=== PATIENT | female | born 1990 ===

== ENCOUNTER → 2023-01-17 08:15 | Outpatient (BNV) | payer BC, SELFPAY | PROVIDERS: Visit Provider Psychiatry & Neurology Psychiatry | DX: F10.21 Alcohol dependence, in remission (principal); F39 Unspecified mood [affective] disorder; F63.89 Other impulse disorders | CPT/HCPCS: 90792; 99213; 99499 ==

== ENCOUNTER 2023-01-30 09:30 | Outpatient (RCR) | payer BC, SELFPAY ==
[2023-01-17 11:58] VITALS: BP 109/77; PULSE 86; TEMP 37.4
[2023-01-17 12:02] VITALS: BMI 19.5
--- NOTE | 2023-01-17 13:19 | PC.ADMIT ---
Rachele is a 32 year old female who was referred to [facility] by [facility] office. Rachele has a dx of ETOH use disorder severe, PTSD, Opiate use disorder, and MDD. She reports she was charged with an OUI in September 2021, 3 A&B on police officers, resisting arrest, disorderly conduct, and reckless driving. She is currently on Probation and has a portable breathalyzer which she has to use three times a day. She stated she was put on probation and has violated probation twice with the last time she was detainee in a recovery program they released her to [facility] as a step down in care. Patient reports she has been attending for more support and her [facility] provider is getting her a financial coach. Patient reports she has attended in the past 2 [facility] programs and was in a residential recovery program. She reports she has a history of being Narcaned one time in July 2022. She stated the last time she used heroin/fentanyl was in July and last time she used ETOH was in November 23, 2022. Patient is alert and oriented x4. Calm and cooperative. She presented with depressed mood and anxious affect. She denied SI. She reports she was prescribed Vistaril for anxiety however stated it did not work and does not want to be on medications at this time. Denied being prescribed any other medication. She stated when she was in treatment previously she never really tried to stay sober as she did not want to at the time. She is trying to do things differently this time as she is motivated to stay sober. She did mention that she is using marijuana smoking daily using 1-2 times or less a day. Stated she smoked marijuana this morning. Moving forward she agreed not to use marijuana while in the program. Patient given a copy of her safety/relapse plan and I reviewed this plan with her.
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
--- NOTE | 2023-01-18 09:52 | PC.NURSE ---
PHP clinician Shyanne stated patient feeling sick and vomited on the way to the program thus went home. I called Rachele and she stated she is not feeling well and is on her way home. Denied any safety concerns. Will be at the program on if feeling better.
--- NOTE | 2023-01-19 18:17 | HO.PHP ---
Clients case was reviewed and opened today in treatment team.
[2023-01-23 14:17] LABS: Amphetamine Screen Urine Not Detected (Not Detect); Barbiturates, Urine Not Detected (Not Detect); Benzodiazepines Screen Urine Not Detected (Not Detect); Cannabinoid Screen Urine Not Detected (Not Detect); Cocaine Screen Urine Not Detected (Not Detect); Fentanyl, urine Not Detected (Not Detect); Opiate Screen Urine Not Detected (Not Detect); Phencyclidine Screen Urine Not Detected (Not Detect)
--- NOTE | 2023-01-23 16:26 | HO.PHP ---
PHP staff provided a note to Rachele stating she is currently enrolled in the program. PHP staff made a copy of the letter and placed in her file.
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
--- NOTE | 2023-01-25 01:03 | PM.EVENT ---
Event Note Date of Service: 01/24/23 Event Note: Patient was scheduled to meet with this provider today, however patient left unexpectedly after group this morning. Please see PHP note for more details. Time Spent With Patient Time: Total time managing care of this patient today ____ minutes.
--- NOTE | 2023-01-30 13:17 | HO.PHPPROGNO ---
Subjective Subjective Date of Service: 01/30/23 Reason For Visit: MDD,PTSD,AUD Interim History: Patient seen today for follow-up as per discharge planning. No acute concerns or issues. She feels she has gotten some helpful skills from attending the program, but indicates that she has many things to attend to in her life right now, including work and legal issues and needs to turn her attention to these matters. She reflects on her struggles and sees that her mental health issues are likely playing a bigger role in her addiction than she had initially thought. She says this has become clearer to her in the past couple of week as problems continue to plague her even though she has maintained sobriety, and is realizing she can no longer simply blame alcohol use for her troubles. After revisiting our prior discussion about her mental health, patient expresses interest in further discussions around possibly starting treatment to address underlying mood, irritability and impulse control issues which she suspects are driving force in her struggles with addiction. She reports her mood today as good. Some anxiety related to current stressors, but feels capable of managing. She denies any thoughts of harming herself or others. She denies any cravings or urges to use. No recent alcohol use. She epxresses wish to maintain sobriety for the near future, and is committed to recovery in order to see her children. Review of Systems Acute medical concerns: No Mental Status Exam Mental Status Exam Narrative: Patient Appearance: Well Grooomed Patient Orientation: Person, Place, Time and Situation Level of Consciousness: Awake and Alert Patient Behavior: Appropriate Mood Description: Anxious (euthymic) Affect Description: Appropriate Patient Cognition Impaired: No Ability to Follow Directions: Excellent Speech Pattern: Clear Memory Description: Intact Hallucinations: None Delusions: Not Present Thought Process: Intact Thought Content: positive for Goal Oriented Judgement: Good (tenuous) Judgement and Insight: fair but adequate Diagnostics Vital Signs (24Hr): BMI result Body Mass Index 19.5 Assessment & Plan Assessment & Plan (1) Alcohol use disorder, severe, in early remission: Status: Acute Code(s): F10.21 - Alcohol dependence, in remission (2) Mood disorder: Status: Acute Code(s): F39 - Unspecified mood [affective] disorder (3) Other disorder of impulse control: Status: Acute Code(s): F63.89 - Other impulse disorders Plan No medications were started, as per patient preference Patient was given referral for MH services through [facility] Pt will follow up with commnity providers Discharge information reviewed. Packet signed and given to patient. Discharge from [facility] today Patient educated on: diagnosis, substance abuse and therapeutic strategies Informed Consent: understands Reason for contiued partial hosp. stay Substantial Risk for: stable for discharge Certification I certify that partial hospital treatment is medically necessary due to the symptoms and problems resulting from the patient's mental illness and the failure to treat the patient at the partial hospital level of care would likely result in the patient requiring inpatient psychiatric care which could not be prevented at a less intensive level of care. Total time managing care of this patient today __30__ minutes. Discharge Plan Discharge Attending provider: Dedra Saunders Medications: No Action No Known Home Meds Stand Alone Forms: Patient Portal Discharge page Patient Education: Mood Disorders (DC), Alcohol Use Disorder (DC) Telehealth Telehealth Location of provider rendering services: other (private office) Location of patient: other ([facility]) Telehealth method: video Patient verbally consented to treatment: Yes Minutes spent on Phone/Video with Pt.: 30
--- NOTE | 2023-01-30 15:54 | HO.PHP ---
[facility] staff member contacted Rachele's OP therapist, Shreya De Anda to inform her that Rachele discharged from program today satisfactory, how many days completed, and when she started. [facility] staff member voiced that she is aware that Rachele needs to reach out to schedule the next appointment with her. [facility] staff encouraged her to return her phone call if she has any additional questions. PHP staff member is awaiting a call back.
--- NOTE | 2023-01-31 07:21 | HO.PHP ---
Late entry for 01/30/23. Referral for med management for CHD was faxed.
== END 2023-01-30 23:59 | disposition home or self-care (01) ==
LOC: HO.PHPA 09:30
PROVIDERS: Visit Provider Psychiatry & Neurology Psychiatry
DX: F39 Unspecified mood [affective] disorder (principal); F63.89 Other impulse disorders; F41.9 Anxiety disorder, unspecified; F43.10 Post-traumatic stress disorder, unspecified; F11.10 Opioid abuse, uncomplicated; F10.21 Alcohol dependence, in remission
CPT/HCPCS: 80307; 90791; 90853

== ENCOUNTER 2023-11-10 14:13 | Emergency (ER) | payer OTHER, SELFPAY ==
--- NOTE | ~2023-11-10 | XR_ITS ---
EXAMINATION: XR KNEE, LEFT CLINICAL INFORMATION: Pain status post running. COMPARISON: None available. TECHNIQUE: Four views of the left knee. FINDINGS: There is no fracture or dislocation. Joint spaces are maintained. There may be a small suprapatellar effusion. Regional soft tissue is normal in appearance. XR/XR knee LT 4V IMPRESSION: No fracture or dislocation. Small suprapatellar effusion.
[2023-11-10 14:43] VITALS: BP 102/52; PULSE 71; RESP 18; TEMP 36.2; O2SAT 100; BMI 18.7
--- NOTE | 2023-11-10 14:43 | ED_ITS ---
HPI - Extremity Injury (Lower) General Chief Complaint: Extremity Problem Stated Complaint: l knee injury Time Seen by Provider: 11/10/23 14:43 Source: patient, RN notes reviewed and old records reviewed Mode of arrival: ambulatory History of Present Illness ED Provider: Claudia Victor PA-C HPI Narrative: 33-year-old female with past medical history mood disorder, anxiety, presenting to the ED complaining of atraumatic left knee pain since yesterday. Reports has been increasing her running mileage/intensity. Denies known injury/trauma or fall. Reports pain worse with movement/ambulation and weight-bearing. Denies calf pain Related Data Previous Rx's ?Medication ?Instructions ?Recorded acetaminophen 500 mg tablet 500 mg PO Q6H PRN fever or pain 11/10/23 (Tylenol Extra Strength) #14 tabs naproxen 500 mg tablet 500 mg PO BID PRN pain 10 days #20 11/10/23 tabs Allergies Allergy/AdvReac Type Severity Reaction Status Date / Time No Known Allergies Allergy Verified 11/10/23 14:46 [No Known Allergies*] Review of Systems Review of Systems: Constitutional: No Fever, No Chills Cardiovascular: No Chest Pain, No SOB Respiratory: No Cough, No Sputum, No Wheezing Musculoskeletal: + joint pain, No Myalgias, + Joint Swelling Skin: No Skin Lesions, No rash Neuro: No Weakness, No Numbness, No Paresthesias Yes all other systems are reviewed and are negative Constitutional: Constitutional: Reports as per [facility] Past Medical History Attestation statement: The following information was validated with the patient. Source: old records reviewed Surgical History H/O spinal fusion Social History Social History Household Members: None Household Members Other:: Rachele currently lives alone in a duplex. Patient Tobacco Use Status: Current everyday Tobacco user Tobacco use type: Cigarette Advance Directives: No Advance Directives Information Provided: No Do you have a plan to hurt others: No Plan Physical Exam Vital Signs: Vital Signs: Last Vital Signs Temp 97.1 F 11/10/23 17:05 Pulse 71 11/10/23 17:05 Resp 18 11/10/23 17:05 BP 102/52 L 11/10/23 17:05 Pulse Ox 100 11/10/23 17:05 O2 Del Method Room Air 11/10/23 17:05 BMI result Body Mass Index 18.7 Const: General: cooperative, healthy appearing and no acute distress O rientation/consciousness: patient oriented x3 Limitations: no limitations HEENT: Head: Yes normal to inspection and Yes atraumatic Ears: hearing grossly normal bilaterally General nose exam: Normal external nose present Face and sinus: Yes normal facial exam Eyes: General: appearance normal, both eyes and all related structures EOM: EOMs intact bilaterally Neck: Neck: Yes normal visual inspection and Yes no meningeal signs Resp: Effort & Inspection: normal respiratory effort and no respiratory distress Cardio: Rate: regular rate Skin: Rashes: no rashes Wounds: no wounds Neuro: General: patient oriented x3, tone normal and no meningeal signs Cranial nerves: Yes CN's II-XII intact bilaterally Gait exam (Neuro): Normal gait present Extrem: Other: left knee with mild swelling > medial aspect w/ttp. No erythema/ecchymosis or crepitus. FROM intact. NV intact distally. no calf ttp Course Course Course Narrative: XR knee LT 4V IMPRESSION: No fracture or dislocation. Small suprapatellar effusion. >patient already has knee brace Results discussed with patient including worrisome signs and symptoms and strict return precautions, and when to return to the emergency department. They verbalized understanding and feel safe for discharge at this time. Medical Decision Making Medical Decision Making [facility] Narrative: 33-year-old female with past medical history mood disorder, anxiety, presenting to the ED complaining of atraumatic left knee pain since yesterday. On exam VSS, NAD, nontoxic appearing, PE as above. Ambulating w/steady gait. Concern for meniscal/tendon or ligamental injury. Low suspicion for fracture, DVT. No evidence of septic joint plan: X-ray, pain control Please refer to course for remaining clinical decision making, interpretation of labs/imaging results, and discussions with consultants and/or family members. Differential Diagnosis Differential Diagnoses: The differential diagnosis associated with the presentation includes As above Independent Interpretation I performed an independent interpretation of an: Plain X-Ray Radiology Impression Discussion of test interpretation with radiology: I have reviewed the radiologist's reading. External Record Review External record reviewed: Inpatient record, Office record, Outpatient record, Prior outpatient labs, Prior outpatient radiology, Primary care record and Outside ED record Tests considered The following testing was considered but not selected: As above Prescription Management I considered prescription management with: Pain Medication Discharge Plan Discharge Clinical Impression: Suprapatellar effusion of knee Patient Disposition: Home, Self-Care Instructions: Swollen Knee Joint (ED) Additional Instructions: X-ray shows suprapatellar swelling Please wearing a knee brace, ice and elevate Avoid excessive activity/bending or anything that irritates her knee Follow-up with your doctor as well as Orthopedics, you may need an MRI in the future Naproxen as an anti-inflammatory/pain medication, take with food in addition take Tylenol Prescriptions: New acetaminophen [Tylenol Extra Strength] 500 mg tablet 500 mg PO Q6H PRN (Reason: fever or pain) Qty: 14 0RF naproxen 500 mg tablet 500 mg PO BID PRN (Reason: pain) 10 Days Qty: 20 0RF Ref[place]: [facility] [place] [facility]Provider Group] [facility] [place] [facility] [Provider Group] [facility] [place] [facility] [Provider Group] Interventions: ED Discharge Assessment Last Done: 11/10/23 17:05 Discharge Date/Time: 11/10/23 17:07 Print Language: Trin[place]
[2023-11-10 17:05] VITALS: BP 102/52; PULSE 71; RESP 18; TEMP 36.2; O2SAT 100
== END 2023-11-10 17:07 | disposition home or self-care (01) ==
PROVIDERS: Emergency Provider Emergency Medicine
DX: M25.462 Effusion, left knee (principal); M25.562 Pain in left knee; F17.210 Nicotine dependence, cigarettes, uncomplicated
CPT/HCPCS: 73564; 99282; 99283; 99284